=== PATIENT | male | born 2005 | race Caucasian/White ===

== ENCOUNTER 2025-04-01 17:57 | Emergency (ER) | payer BC, OTHER, SELFPAY ==
[2025-04-01 18:00] VITALS: BP 130/77
--- NOTE | 2025-04-01 18:04 | ED.GENMED ---
History of Present Illness
General
Chief Complaint: Suicidal Ideation
Source: patient and ambulance crew
Time Seen by Provider: 04/01/25 17:58
History of Present Illness
History of Present Illness:
20-year-old male presents emergency room via ambulance after he discovered attempting suicide via carbon monoxide poisoning. Patient was sitting in his car with the heat on and his exhaust pipe obstructed. The patient thought that he would be able
to commit suicide in this way. He was sitting in the car about 1/2-hour. He denies feeling any headache, chest pain, shortness of breath. He was evidently awake when found by his dad and awake when the paramedics arrived. He does not smoke
Past History
Past History
ED Past Medical History: Psychiatric (OCD, depression)
ED Past Surgical History: Other ([place] teeth)
Social History
Tobacco: Other
Alcohol: None
Drug: Other
Personal: Single
Living: with family
Employment: Other
Family History
Family History: Other
Phy Exam
Physical Exam
Physical Exam:
General: Awake, Alert, Oriented X3. No acute distress.
Vitals: unremarkable
Head: Atraumatic
Eyes: Pupils equal, EOMI
Throat: Airway intact, no exudates normal-appearing mucosa
Neck: Trachea midline
Lungs: Clear and equal b/l
Heart: Regular rate, no murmurs
Abd: Soft, Nontender, No pulsatile mass
Neuro: Nonfocal
Skin: Warm, dry, no rash
Extremities: pulses equal b/l, no edema
Course
Orders/Labs/Results
Orders:
Orders
04/01/25 18:04
Electrocardiogram (*1) Stat
Reason for Study: Other
Other Reason for Exam: overdose
EKG- Treatment ONCE
04/01/25 18:27
1:1 Observation - Suicide/ Violent Behavior As Directed
Crisis Consult Urgent
Reason for Consult: suicide attempt
04/01/25 18:33
Acetaminophen Urgent
Alcohol Urgent
Carboxyhemoglobin Urgent
Comment: via blood gas
Complete Blood Count/With Diff Urgent
Comprehensive Metabolic Panel Urgent
Salicylate Urgent
Venous Blood Gas Urgent
%Oxygen/Room Air: ra
04/01/25 18:35
Urine Drug Abuse Screen Urgent
Date Specimen was Collected: 04/01/25
Time Specimen was Collected: 18:34
04/01/25 19:52
Crisis Consult Urgent
Reason for Consult: suicide attempt
Abnormal Lab Results
04/01/25
18:33
MPV 11.9 H fL
(7.4-10.4)
Absolute Monos (auto) 0.7 H 10^3/uL
(0.1-0.6)
Lymphocytes % 18.2 L %
(20.5-51.1)
Monocytes % 10.2 H %
(1.7-9.3)
VBG pCO2 50 H mmHg
(35-48)
VBG pO2 52 H mmHg
(30-50)
VBG HCO3 28.2 H mmol/L
(22-27)
Salicylates < 1.0 L mg/dl
(2.0-20.0)
Acetaminophen < 10 L ug/ml
(10-30)
04/01/25 18:33
04/01/25 18:33
Vital Signs
Initial and Last Documented VS:
Initial Vital Signs
Temp Pulse Resp BP Pulse Ox
98.7 F 72 22 130/77 97
04/01/25 18:00 04/01/25 18:00 04/01/25 18:00 04/01/25 18:00 04/01/25 18:00
Last Documented Vital Signs
Temp Pulse Resp BP Pulse Ox
98.7 F 63 18 120/77 98
04/01/25 18:00 04/01/25 21:00 04/01/25 21:00 04/01/25 21:00 04/01/25 21:00
MDM/Problems Addressed
Differential Diagnosis Includes:
Car monoxide poisoning, other overdose, suicidal ideation
MDM/Problems Addressed:
Patient presents via ambulance after being found in a car with the exhaust obstructed. Patient was found to be conscious at the time. Carboxyhemoglobin level is only 2 which is normal. Other labs are unremarkable. Patient is medically clear for
psychiatric treatment.
*Pulse Oximetry
SaO2: 97
Oxygen Mode of Delivery: Room air
Patient hypoxic: no
*EKG
Interpreted by ED Provider?: Yes
Interpretation: normal
Heart Rate: 68
Rate: normal
Rhythm: sinus
[place]: normal axis
Interval: normal interval
QRS Pattern: normal QRS
Ischemia: no ischemia
*Line Manager Interpretation
Rate: normal
Interpretation: normal
Rhythm: sinus
*Critical Care Note
Total Time (30-74mins, 75-104mins- exclusive of procedures): Not Applicable
ED Attending Note
-
Portions of this chart may have been created with voice recognition software.� Occasional wrong word or��sound alike� substitutions may have occurred due to the inherent limitations of voice recognition software.
Discharge Plan
Departure
Patient Disposition: Psych Facility
Date of Disposition: 04/01/25
Time of Disposition: 19:51
Patient Status:: 302
Condition: Fair
Discharge Problem:
Suicide attempt
Prescriptions:
No Action
No Current Medications
0
Referrals:
NONE,* [Family Provider, Internal Medicine]
Interventions
Interventions:
*Risk Screen - Suicide Last Done: 04/01/25 18:00
*General Assessment Last Done: 04/01/25 18:00
*Neglect/Abuse Screening Last Done: 04/01/25 18:00
*ED COVID-19 Vaccine History Last Done: 04/01/25 18:00
ED-Psychological Assessment Last Done: 04/01/25 18:15
Discharge Date and Time
Print Language: BULGARIAN
[2025-04-01 18:37] VITALS: BP 128/72
[2025-04-01 18:45] LABS: Hematocrit 44.6 % (39.0-52.0); Hemoglobin 15.6 g/dL (13.0-18.0); Mean Corp Hgb Conc. 35.0 g/dL (33.0-37.0); Mean Corpuscular Volume 83.5 fL (80.0-94.0); Nucleated Red Blood Cells % 0 % (-); Platelet Count 183 10^3/uL (130-400); Red Cell Dist. Width 11.7 % (11.5-14.5); Venous Blood Gas B.E. 1.7 mmol/L (-4 to +4); Venous Blood Gas O2 Sat % 85.6 %
[2025-04-01 19:00] VITALS: BP 129/70
[2025-04-01 19:07] LABS: ALT (SGPT) 24 U/L (0-50); AST (SGOT) 24 U/L (17-59); Acetaminophen < 10 ug/ml (10-30); Albumin 4.8 g/dl (3.5-5.0); Alkaline Phosphatase 93 U/L (38-126); Blood Urea Nitrogen 13 mg/dl (9-20); Calcium 9.8 mg/dl (8.4-10.2); Carbon Dioxide 28 mmol/L (22-30); Chloride 104 mmol/L (98-107); Estimated Creatinine Clearance 87 ml/min; Glucose 83 mg/dl (70-99); Potassium 4.1 mmol/L (3.5-5.1); Salicylate < 1.0 mg/dl (2.0-20.0); Sodium 139 mmol/L (135-145); Total Protein 7.0 g/dl (6.3-8.2); eGFR > 60.00
[2025-04-01 19:43] LABS: Carboxyhemoglobin 2.4 %
[2025-04-01 20:00] VITALS: BP 122/77
[2025-04-01 21:00] VITALS: BP 120/77
== END 2025-04-02 00:10 ==
LOC: EMR 17:57
PROVIDERS: EMERGENCY PHYSICIAN Emergency Medicine
DX: T58.02XA Toxic effect of carbon monoxide from motor vehicle exhaust, intentional self-harm, initial encounter (principal); Y92.008 Other place in unspecified non-institutional (private) residence as the place of occurrence of the external cause; F42.9 Obsessive-compulsive disorder, unspecified; F32.A Depression, unspecified
CPT/HCPCS: 99285; 80053; 80143; 80179; 80306; 82077; 82375; 82805; 85025; 93005